=== PATIENT | male | born 1985 | race Caucasian/White ===

== ENCOUNTER 2017-04-29 08:11 | Emergency (ER) | payer OTHER ==
[~2017-04-29] VITALS: Ht 180.3 cm; Wt 108.3 kg
[~2017-04-29 08:11] MED LIST: IBUP-1050 PO
[2017-04-29 08:18] VITALS: TEMP 36.7; Ht 180.3 cm; Wt 108.3 kg
[2017-04-29] MEDS ORDERED: IBUPROFEN 600 MG TAB PO STA (08:28)
[2017-04-29] MEDS ORDERED: PROPARACAINE HCL 0.5% OP SOLN 15 ML BTL OPR STA (08:28)
--- NOTE | 2017-04-29 08:32 | EMERGENCY ROOM VISIT NOTE ---
ED Visit Note First contact with patient: 08:20 CHIEF COMPLAINT: Eye pain HISTORY OF PRESENT ILLNESS: This 31-year-old male patient presents to the emergency department complaining of pain in the right eye after being struck in the eye by a tree branch earlier this morning. Patient states he was mowing, and the tip of the pine tree branch struck him in the right eye causing immediate pain. He states there is a sensation of her body retained in the eye that is scratching every time he blinks. There has been a constant moderate pain and irritation, redness and tearing in the eye. There is a mild blurring of vision at times and light bothers the eye. The vision has not been decreased over all. The patient does not wear contacts. The patient rates the pain as burning and 5/10. The patient has not had previous injuries to this eye. Tetanus shot is up to date. REVIEW OF SYSTEMS: A 6 system review of systems was completed with positives and pertinent negatives listed in the HPI. ALLERGIES: See chart MEDICATIONS: See chart PMH: See chart SOCIAL HISTORY: See chart PHYSICAL EXAM: Vital Signs: Reviewed Nurse's notes, vital signs stable. Visual acuity right eye 20/20, left eye 20/15. GENERAL: This is a pleasant and cooperative gentleman, in no acute distress, but who is uncomfortable from the eye problem. Well-developed well-nourished. EYES: The pupils are equal round and reactive to light and accommodation. EOMs are full and without tenderness. There is discharge of clear tears from the right eye which is injected. There is no foreign body visible under the eyelid even after lid eversion. Funduscopic exam reveals no hemorrhages, papilledema, or other abnormalities. No foreign body was seen embedded in the cornea under slit lamp exam. The cornea was clear and no hyphema was seen. Fluorescein uptake was observed with ultraviolet light significant for a vertical linear corneal abrasion of the right eye overlying the iris from approximately 10 o'clock to 8 o'clock position. EMERGENCY DEPARTMENT COURSE: I examined the patient. Alcaine 2 drops were placed in the patient's right eye. The patient was given Motrin for pain. A slit lamp exam was performed as above. Ciloxan two drops was placed in the patient's right eye. The patient was discharged home in good condition. Problem List Medical Problems: (1) Poor dentition Status: Chronic Current/Historical Medications Scheduled PRN Ibuprofen (Advil), 800 MG PO Q4H PRN for Pain Allergies Coded Allergies: Tramadol (Verified Allergy, Unknown, nausea, 04/29/17) Vital Signs Date Time Temp Pulse Resp B/P (MAP) Pulse Ox O2 Delivery O2 Flow Rate FiO2 04/29/17 09:22 58 18 143/88 99 04/29/17 08:18 36.7 72 18 145/92 99 Room Air Medications Administered Medications (Trade) Dose Ordered Sig/Scotty Route Start Time Stop Time Status Last Admin Dose Admin Proparacaine HCl (Alcaine 0.5% Oph Soln) 2 drops NOW STAT [facility] 04/29/17 08:28 04/29/17 08:30 DC 04/29/17 08:39 2 DROPS Ibuprofen (Motrin Tab) 600 mg NOW STAT PO 04/29/17 08:28 04/29/17 08:30 DC 04/29/17 08:39 600 MG Ciprofloxacin HCl (Ciprofloxacin 0.3% Op Soln) 2 drops NOW ONCE [facility] 04/29/17 09:15 04/29/17 09:16 DC 04/29/17 09:16 2 DROPS Departure Information Impression Primary Impression: Right corneal abrasion Dispostion Home / Self-Care Condition GOOD Referrals No Doctor, Assigned (PCP) Patient Instructions [facility] Additional Instructions Use Ciloxin two drops in the right eye every two hours while awake for two days ; then two drops every four hours while awake for 3-5 days. Use Ibuprofen 600 mg or Tylenol 1000 mg every 6-8 hrs as needed for moderate pain. Cool compresses over your eye for comfort. Follow up with your PCP or see your eye doctor in 24-48 hours for a recheck. Return to the ED for increasing pain, pus drainage from the eye, or changes in vision. Work Instructions Return To Work: 2 days Problem Qualifiers Primary Impression: Right corneal abrasion Encounter type: initial encounter Qualified Codes: S05.01XA - Injury of conjunctiva and corneal abrasion without foreign body, right eye, initial encounter
[2017-04-29] MEDS ORDERED: CIPROFLOXACIN HCL 0.3% OP SOLN 2.5 ML BTL OPR ONE (09:15)
[2017-04-29 09:22] VITALS: BP 143/88; PULSE 58; O2SAT 99
== END 2017-04-29 09:22 | disposition home or self-care (01) ==
LOC: C.EDB 08:13
DX: S05.01XA Injury of conjunctiva and corneal abrasion without foreign body, right eye, initial encounter (principal); W22.8XXA Striking against or struck by other objects, initial encounter; Y93.H9 Activity, other involving exterior property and land maintenance, building and construction